=== PATIENT | female | born 1955 | race Caucasian/White ===

== ENCOUNTER → 2016-12-16 | Outpatient (CLI) | payer OTHER ==
[~2016-12-16] MED LIST: ALBUTEROL INH INH; ALLEGRA ALLERG180 MG PO; ASPERDRINK81 MG PO; ASPIRIN EC81 M1 PO; BENADRYL25 MG PO; DIAZEPAM 5 MG5 M1; GLUCOPHAGE XR500 MG PO; LISINOPRIL10 MG PO; PERCOCET 5-3251 EACH; PRILOSEC 20 MG20 MG PO; PROAIR HFA8.5 GM INH; TRIGLIDE160 M1 PO; VITAMIN D350000 UNIT PO
== END ==
LOC: NUC 07:14
DX: R00.9 Unspecified abnormalities of heart beat (principal)